=== PATIENT | male | born 1965 | race Caucasian/White ===

== ENCOUNTER 2020-08-24 13:11 | Observation (INO) | payer BC ==
[2020-08-24] MEDS ORDERED: NALOXONE 0.4 MG/ML 1 ML VIAL IV PRN (13:17)
[2020-08-24] MEDS ORDERED: ACETAMINOPHEN TAB 325 MG TAB PO PRN (13:17)
[2020-08-24] MEDS ORDERED: NITROGLYCERIN SL TABS 0.4 MG TAB SUBLINGUAL PRN (13:19)
--- NOTE | 2020-08-24 13:22 | ED ---
General Adult HPI - General Chief complaint: Chest Pain Stated complaint: Chest pain Time Seen by Provider: 08/24/20 13:14 Source: patient, EMS, RN notes reviewed, old records reviewed Mode of arrival: EMS Limitations: no limitations - History of Present Illness Initial comments: 54-year-old male presenting for evaluation chest pain. Patient was seen at outside hospital and transferred for cardiology consultation and chest pain rule out. He had chest pain this morning which was substernal. He had EKG, laboratory testing at outside hospital which was essentially unremarkable and the patient was transferred for further evaluation and treatment. He is a nonsmoker, no history diabetes or hypertension. No known history of coronary artery disease. He vomited all anterior chest pain this morning which was nonradiating. No associated vomiting or diaphoresis. Patient did have some nausea. - Related Data Allergies Allergy/AdvReac Type Severity Reaction Status Date / Time ibuprofen [From Motrin] Allergy Anaphylaxis Verified 08/24/20 13:17 Review of Systems ROS Statement: Those systems with pertinent positive or pertinent negative responses have been documented in the HPI. ROS Other: All systems not noted in ROS Statement are negative. Past Medical History Past Medical History: GERD/Reflux History of Any Multi-Drug Resistant Organisms: None Reported Additional Past Surgical History / Comment(s): left elbow sx, left hernioa repair, sinus sx Past Psychological History: Anxiety Smoking Status: Former smoker Past Alcohol Use History: Daily Past Drug Use History: None Reported General Exam Limitations: no limitations General appearance: alert, in no apparent distress Head exam: Present: atraumatic, normocephalic Eye exam: Present: normal appearance, PERRL ENT exam: Present: normal exam Neck exam: Present: normal inspection. Absent: tenderness, meningismus Respiratory exam: Present: normal lung sounds bilaterally. Absent: respiratory distress, wheezes Cardiovascular Exam: Present: regular rate, normal rhythm GI/Abdominal exam: Present: soft. Absent: distended, tenderness Extremities exam: Present: normal inspection, normal capillary refill. Absent: pedal edema, calf tenderness Neurological exam: Present: alert, oriented X3, CN II-XII intact. Absent: motor sensory deficit Psychiatric exam: Present: normal affect, normal mood Skin exam: Present: warm, dry, intact. Absent: cyanosis, diaphoretic Course Vital Signs 08/24/20 13:12 Pulse Rate 77 Respiratory 16 Rate Blood Pressure 157/100 O2 Sat by Pulse 98 Oximetry - Reevaluation(s) Reevaluation #1: 08/24/20 13:21 Patient had been given aspirin prior to transfer EKG Findings - EKG Comments: EKG Findings:: EKG: Normal sinus rhythm, rate 78, AZ interval 142, QRS duration 80, QTC 444, no ST segment elevation. Medical Decision Making - Medical Decision Making 54-year-old male transferred for chest pain rule out. Laboratory testing will be repeated including second troponin at this time. He had a normal CBC, normal CMP and negative troponin prior to transfer. She will be kept on telemetry, serial cardiac enzymes, cardiology consultation. Disposition Clinical Impression: Chest pain Disposition: ADMITTED IP TO THIS HOSP Condition: Stable Is patient prescribed a controlled substance at d/c from ED?: No Referrals: Nonstaff,Physician [Primary Care Provider] - 1-2 days Decision to Admit Reason: Admit from EC Decision Date: 08/24/20 Decision Time: 13:22
[2020-08-24 13:34] LABS: Basophils % (A) 0 %; Eosinophils # (A) 0.2 k/uL (0-0.7); Eosinophils % (A) 2 %; HCT 43.8 % (39.0-53.0); HGB 14.9 gm/dL (13.0-17.5); Lymphocytes # (A) 1.8 k/uL (1.0-4.8); Lymphocytes % (A) 25 %; MCH 31.6 pg (25.0-35.0); MCHC 33.9 g/dL (31.0-37.0); MCV 93.1 fL (80.0-100.0); Mean Platelet Volume 6.6; Monocytes # (A) 0.3 k/uL (0-1.0); Monocytes % (A) 4 %; Neutrophils # (A) 4.9 k/uL (1.3-7.7); Neutrophils % (A) 66 %; Platelet Count 282 k/uL (150-450); RBC 4.71 m/uL (4.30-5.90); RDW 12.5 % (11.5-15.5); WBC 7.3 k/uL (3.8-10.6)
[2020-08-24 13:43] LABS: ALT 32 U/L (4-49); AST 31 U/L (17-59); African American GFR (CKD) >90 (>60 ml/min/1.73 sqM); Albumin 4.5 g/dL (3.5-5.0); Alkaline Phosphatase 44 U/L (38-126); Anion Gap 11 mmol/L; Blood Urea Nitrogen 17 mg/dL (9-20); Calcium 9.5 mg/dL (8.4-10.2); Carbon Dioxide 21 mmol/L (22-30); Chloride 105 mmol/L (98-107); Glucose 92 mg/dL (74-99); Non-African American GFR(CKD) >90 (>60 ml/min/1.73 sqM); Potassium 4.3 mmol/L (3.5-5.1); Sodium 137 mmol/L (137-145); Total Bilirubin 0.7 mg/dL (0.2-1.3); Total Protein 7.6 g/dL (6.3-8.2)
[2020-08-24 13:46] LABS: INR 0.9 (<1.2); Partial Thromboplastin Time 22.6 sec (22.0-30.0); Prothrombin Time 9.8 sec (9.0-12.0)
[2020-08-24] MEDS: MORPHINE SULFATE 4 MG/ML SYRINGE IV PRN (20:59)
[2020-08-25] MEDS: MORPHINE SULFATE 4 MG/ML SYRINGE IV PRN (01:16)
[2020-08-25] MEDS ORDERED: PANTOPRAZOLE 40 MG TABLET PO SCH (07:30)
--- NOTE | 2020-08-25 07:31 | P.CRDCN ---
History of Present Illness Chief complaint: Chest pain History of present illness: This is a very pleasant 54-year-old gentleman with no significant cardiovascular history who was requested to see as a consult for further evaluation of chest discomfort. He was in his usual state of health until yesterday when he was at home and suddenly developed discomfort in the chest as a sharp discomfort lasted only for a few seconds. After that the chest discomfort has resolved. No associated symptoms of shortness of breath or dizziness or lightheadedness or sweating. No loss of consciousness and no syncope. No feeling of heart racing or fluttering. Currently is chest pain-free. He stated he has been experiencing back discomfort and chest discomfort lately and he is known to have chronic pain. Apparently the back discomfort and chest discomfort are positional and mainly once he is turning his torso to the right or to the left. He presented initially to the emergency department at [facility] subsequently he was transferred to [facility]. The EKG showed sinus rhythm without any significant ST or T wave abnormalities. The blood work came in to be unremarkable. Currently is chest pain-free. He states that he underwent a stress test about a month ago at [place] and that was unre markable. Past Medical History Past Medical History: GERD/Reflux Additional Past Medical History / Comment(s): Pt to have colonoscopy 08/28/20 for possible IBS, muscle spasms, occasional low back pain, sinus problems History of Any Multi-Drug Resistant Organisms: None Reported Additional Past Surgical History / Comment(s): left elbow sx to remove piece of metal, left inguinal hernia repair, sinus surgery. Past Anesthesia/Blood Transfusion Reactions: No Reported Reaction, Motion Sickness Additional Past Anesthesia/Blood Transfusion Reaction / Comment(s): Pt has clausterphobia. Smoking Status: Former smoker - Past Family History Father Family Medical History: Myocardial Infarction (HI) Additional Family Medical History / Comment(s): Father of a HI at the age of 68yrs. Mother History Unknown: Yes Additional Family Medical History / Comment(s): Pt cannot recall mother's medical history at this time. Medications and Allergies Home Medications Medication Instructions Recorded Confirmed Type L.acidoph,Paracasei, B.lactis 1 cap PO DAILY 08/24/20 08/24/20 History [Probiotic] Loratadine [Claritin] 10 mg PO DAILY 08/24/20 08/24/20 History Omeprazole Magnesium [PriLOSEC OTC] 20 mg PO DAILY 08/24/20 08/24/20 History Vitamin E 4,000 unit PO DAILY 08/24/20 08/24/20 History buPROPion HCL [Wellbutrin XL] 300 mg PO DAILY 08/24/20 08/24/20 History Allergies Allergy/AdvReac Type Severity Reaction Status Date / Time ibuprofen [From Motrin] Allergy Anaphylaxis Verified 08/24/20 13:46 Physical Exam Vitals: Vital Signs Temp Pulse Pulse Resp BP BP Pulse Ox 08/25/20 01:53 70 08/25/20 01:27 98.2 F 70 114/76 96 08/24/20 20:00 69 08/24/20 19:45 97.9 F 69 137/83 97 08/24/20 15:40 97.7 F 71 16 136/85 95 08/24/20 13:12 77 16 157/100 98 Intake and Output 08/24/20 08/25/20 08/25/20 22:59 06:59 14:59 Intake Total 200 0 Balance 200 0 Intake: Oral 200 0 Other: Voiding Method Toilet Toilet # Voids 2 Weight 88.451 kg - Constitutional General appearance: no acute distress - Respiratory Respiratory: bilateral: CTA - Cardiovascular Rhythm: regular Heart sounds: normal: S1, S2 Results 08/24/20 13:21 08/24/20 13:21 Cardiac Enzymes 08/24/20 08/24/20 08/24/20 Range/Units 13:21 13:21 16:02 AST 31 (17-59) U/L Troponin I <0.012 <0.012 (0.000-0.034) ng/mL 08/24/20 Range/Units 19:17 AST (17-59) U/L Troponin I <0.012 (0.000-0.034) ng/mL Coagulation 08/24/20 Range/Units 13:21 PT 9.8 (9.0-12.0) sec APTT 22.6 (22.0-30.0) sec CBC 08/24/20 Range/Units 13:21 WBC 7.3 (3.8-10.6) k/uL RBC 4.71 (4.30-5.90) m/uL Hgb 14.9 (13.0-17.5) gm/dL Hct 43.8 (39.0-53.0) % Plt Count 282 (150-450) k/uL Comprehensive Metabolic Panel 08/24/20 Range/Units 13:21 Sodium 137 (137-145) mmol/L Potassium 4.3 (3.5-5.1) mmol/L Chloride 105 (98-107) mmol/L Carbon Dioxide 21 L (22-30) mmol/L BUN 17 (9-20) mg/dL Creatinine 0.75 (0.66-1.25) mg/dL Glucose 92 (74-99) mg/dL Calcium 9.5 (8.4-10.2) mg/dL AST 31 (17-59) U/L ALT 32 (4-49) U/L Alkaline Phosphatase 44 (38-126) U/L Total Protein 7.6 (6.3-8.2) g/dL Albumin 4.5 (3.5-5.0) g/dL Current Medications Generic Name Dose Route Start Last Admin Trade Name Freq PRN Reason Stop Dose Admin Acetaminophen 650 mg 08/24/20 13:17 Acetaminophen Tab 325 Mg Tab PO Q6HR PRN Mild Pain or Fever > 100.5 Bupropion HCl 300 mg 08/25/20 09:00 Bupropion Xl 300 Mg Tab.Er.24h PO DAILY [facility] Loratadine 10 mg 08/25/20 09:00 Loratadine 10 Mg Tab PO DAILY [facility] Morphine Sulfate 4 mg 08/24/20 13:17 08/25/20 01:16 Morphine Sulfate 4 Mg/Ml Syringe IV 4 mg Q4HR PRN Administration Severe Pain Naloxone HCl 0.2 mg 08/24/20 13:17 Naloxone 0.4 Mg/Ml 1 Ml Vial IV Q2M PRN Opioid Reversal Nitroglycerin 0.4 mg 08/24/20 13:19 Nitroglycerin Sl Tabs 0.4 Mg Tab SUBLINGUAL Q5M PRN Chest Pain Pantoprazole Sodium 40 mg 08/25/20 07:30 Pantoprazole 40 Mg Tablet PO DAILY@0730 [facility] Vitamin E 1,600 unit 08/25/20 09:00 Vitamin E (Dl,Tocopheryl Acet) 400 Unit Cap PO DAILY [facility] Intake and Output 08/24/20 08/25/20 08/25/20 22:59 06:59 14:59 Intake Total 200 0 Balance 200 0 Intake: Oral 200 0 Other: Voiding Method Toilet Toilet # Voids 2 Weight 88.451 kg 08/24/20 13:21 08/24/20 13:21 Assessment and Plan Assessment: Assessment #1 atypical chest discomfort Plan #1 acute coronary event was ruled out #2 rule out PE. I will get a d-dimer #3 obtain an echocardiogram was Doppler #4 if the workup is unremarkable the patient need to have a stress test probably as an outpatient #5 he would like to go home and have the stress test done as an outpatient
[2020-08-25 08:13] VITALS: BP 107/67; PULSE 65; RESP 18; TEMP 97.7
[2020-08-25] MEDS ORDERED: LORATADINE 10 MG TAB PO SCH (09:00)
[2020-08-25] MEDS ORDERED: buPROPion XL 300 MG TAB.ER.24H PO SCH (09:00)
[2020-08-25] MEDS ORDERED: VITAMIN E (DL,TOCOPHERYL ACET) 400 UNIT CAP PO SCH (09:00)
--- NOTE | 2020-08-25 10:27 | P.HPIM ---
History of Present Illness H&P Date: 08/25/20 Chief Complaint: Apical chest pain, nausea and GERD, elevated blood pressure 54-year-old male one of Dr. 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 Patient ended up going to [facility] his EKG and CK were negative patient was transferred to [facility] under her service for cardiology consultation and possible need for stress test. Patient was seen and evaluated in the ER CK with troponin continue to be negative EKG didn't show any abnormality patient was hospitalized consult cardiology and plan for stress test if possible otherwise echocardiogram will be done. Patient had no further chest pain or angina initially was on heparin and nitro which were both stopped. Review of Systems CONSTITUTIONAL: Well-developed no acute respiratory distress. EYES: No icterus sclerae, no conjunctivitis. EARS, NOSE, MOUTH, THROAT, and FACE: No sore throat, lymphadenopathy, carotid bruits or deformity. RESPIRATORY: No SOB cough or wheezes. CARDIOVASCULAR: Positive chest wall pain, Palpitation, PND, Orthopnea, or angina. GASTROINTESTINAL: No Abd pain, Nausea or vomiting, no Diarrhea or constipation, No GI Bleed, no distention or masses. Increase heartburn and GERD GENITOURINARY: Negative for Hematuria or UTI, no kidney stones. INTEGUMENT/BREAST: Negative for any muscular injury with mild osteoarthritis.. HEMATOLOGIC/LYMPHATIC: Negative for bleed or purpura. MUSCULOSKELTAL: Negative for Myalgia or arthralgia. NEURLOGICAL: No LOC, Sz or syncope, blurred vision dizziness or abnormality.. BEHAVIORAL/PSYCH: Negative. ENDOCRINE: Negative. Social history: Patient quit smoking 2009 use smoke half pack a day for 9 years than 2 tobacco f or long time adequate systemic 2009 with the help of Chantix. Patient drink 4 days a week between 2-5 beers at the time has not been an alcoholic and did not have any withdrawal symptoms, does not use any recreational marijuana or drugs. Patient worked in service appliance maintenance. Family history: His father dying at 68 from [place], mother is living or 72 with history of hypertension. Patient has 4 sisters are all living and well for children with no major medical problem. Past Medical History Past Medical History: GERD/Reflux Additional Past Medical History / Comment(s): Pt to have colonoscopy 08/28/20 for possible IBS, muscle spasms, occasional low back pain, sinus problems History of Any Multi-Drug Resistant Organisms: None Reported Additional Past Surgical History / Comment(s): left elbow sx to remove piece of metal, left inguinal hernia repair, sinus surgery. Past Anesthesia/Blood Transfusion Reactions: No Reported Reaction, Motion Sickne ss Additional Past Anesthesia/Blood Transfusion Reaction / Comment(s): Pt has clausterphobia. Smoking Status: Former smoker - Past Family History Father Family Medical History: Myocardial Infarction (MT) Additional Family Medical History / Comment(s): Father of a MT at the age of 68yrs. Mother History Unknown: Yes Additional Family Medical History / Comment(s): Pt cannot recall mother's medical history at this time. Medications and Allergies Home Medications Medication Instructions Recorded Confirmed Type L.acidoph,Paracasei, B.lactis 1 cap PO DAILY 08/24/20 08/24/20 History [Probiotic] Loratadine [Claritin] 10 mg PO DAILY 08/24/20 08/24/20 History Omeprazole Magnesium [PriLOSEC OTC] 20 mg PO DAILY 08/24/20 08/24/20 History Vitamin E 4,000 unit PO DAILY 08/24/20 08/24/20 History buPROPion HCL [Wellbutrin XL] 300 mg PO DAILY 08/24/20 08/24/20 History Acetaminophen Tab [Tylenol] 650 mg PO Q6HR PRN tab 08/25/20 Rx Allergies Allergy/AdvReac Type Severity Reaction Status Date / Time ibuprofen [From Motrin] Allergy Anaphylaxis Verified 08/24/20 13:46 Physical Exam Vitals: Vital Signs Temp Pulse Pulse Resp BP BP Pulse Ox 08/25/20 01:53 70 08/25/20 01:27 98.2 F 70 114/76 96 08/24/20 20:00 69 08/24/20 19:45 97.9 F 69 137/83 97 08/24/20 15:40 97.7 F 71 16 136/85 95 08/24/20 13:12 77 16 157/100 98 Intake and Output 08/24/20 08/24/20 08/25/20 14:59 22:59 06:59 Intake Total 200 0 Balance 200 0 Intake: Oral 200 0 Other: Voiding Method Toilet Toilet # Voids 2 Weight 88.451 kg 88.451 kg General Appearance: Alert, cooperative, no distress, appears stated age. Neck HEENT: Supple, no lymphadenopathy, no thyroid enlargement, no carotid bruits. Lungs: Clear to auscultation without crackles or wheezes no rhonchi, no deformity. Chest Wall: Chest wall normal expansion with deep inspiration no tenderness and no deformity was found on exam, slight discomfort in the chest wall area as a mild costochondritis worse in the right than the left side.. Heart: Regular rate and rhythm, S1, S2 normal, no murmur, rub or gallop. Back: Symmetric, no curvature, ROM normal, no CVA tenderness. Abdomen: Soft, non-tender, bowel sounds active all four quadrants, no masses, no organomegaly. Extremities: Extremities normal, atraumatic, no cyanosis or edema. Pulses: 2+ and symmetric. Skin: Skin color, texture, tugor normal, no rashes or lesions. Neurologic: Alert oriented x3 cranial nerves II through XII intact, no motor deficit, no abnormal balance or gait. Results CBC & Chem 7: 08/24/20 13:21 08/24/20 13:21 Labs: Abnormal Lab Results - Last 24 Hours (Table) 08/24/20 Range/Units 13:21 Carbon Dioxide 21 L (22-30) mmol/L Thrombosis Risk Factor Assmnt - DVT/VTE Prophylaxis DVT/VTE Prophylaxis: Mechanical Prophylaxis ordered - Choose All That Apply Any of the Below Risk Factors Present?: Yes Each Factor Represents 1 point: Age 41-60 years, Obesity (BMI >25) Other Risk Factors: No Other congenital or acquired thrombophilia - If yes, enter type in comment: No Thrombosis Risk Factor Assessment Total Risk Factor Score: 2 Thrombosis Risk Factor Assessment Level: Low Risk Assessment and Plan Assessment: 1 atypical chest pain: Less likely to be cardiac in origin, patient was transferred from [facility] continue CK with troponin 3, echocardiogram was ordered and patient will require stress test as an outpatient. If all CK are negative no abnormality with the echo and he is d- dimer patient can be discharged and have stress test as an outpatient patient can be treated for costochondritis by doing Tylenol or Advil for the next week to 10 days adequate follow-up with his primary care and cardiology as an outpatient. 2 severe GERD: Patient has been on omeprazole 20 mg a day continue medication on regular basis at least for the next 2 weeks and then on demand afterward. 3 IBS: Patient still doing probiotic and diet control has been doing well with it so far. 4 chronic depression: Patient has been on Wellbutrin 300 mg daily well controlled so far. 5 GI prophylaxis: Continue PPI. 6 DVT prophylaxis: Continue patient on early mobilization and knee-high DANIKA hose. CODE STATUS: Full code. Admit patient to observation status for overnight stay.
--- NOTE | 2020-08-25 10:30 | P.DS ---
Providers Date of admission: 08/24/20 13:57 Attending physician: Rima Mojica MD Consults: 08/24/20 13:18 Consult Physician Routine Consulting Provider: Arnulfo Brewer Consult Reason/Comments: CP Do you want consulting provider notified?: Yes Primary care physician: Darryl Shook MD Hospital Course: Chief Complaint: Apical chest pain, nausea and GERD, elevated blood pressure 54-year-old male one of Dr. 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 Patient ended up going to [facility] his EKG and CK were negative patient was transferred to [facility] under her service for cardiology consultation and possible need for stress test. Patient was seen and evaluated in the ER CK with troponin continue to be negative EKG didn't show any abnormality patient was hospitalized consult cardiology and plan for stress test if possible otherwise echocardiogram will be done. Patient had no further chest pain or angina initially was on heparin and nitro which were both stopped. Review of Systems CONSTITUTIONAL: Well-developed no acute respiratory distress. EYES: No icterus sclerae, no conjunctivitis. EARS, NOSE, MOUTH, THROAT, and FACE: No sore throat, lymphadenopathy, carotid bruits or deformity. RESPIRATORY: No SOB cough or wheezes. CARDIOVASCULAR: Positive chest wall pain, Palpitation, PND, Orthopnea, or angina. GASTROINTESTINAL: No Abd pain, Nausea or vomiting, no Diarrhea or constipation, No GI Bleed, no distention or masses. Increase heartburn and GERD GENITOURINARY: Negative for Hematuria or UTI, no kidney stones. INTEGUMENT/BREAST: Negative for any muscular injury with mild osteoarthritis.. HEMATOLOGIC/LYMPHATIC: Negative for bleed or purpura. MUSCULOSKELTAL: Negative for Myalgia or arthralgia. NEURLOGICAL: No LOC, Sz or syncope, blurred vision dizziness or abnormality.. BEHAVIORAL/PSYCH: Negative. ENDOCRINE: Negative. Social history: Patient quit smoking 2009 use smoke half pack a day for 9 years than 2 tobacco for long time adequate systemic 2009 with the help of Chantix. Patient drink 4 days a week between 2-5 beers at the time has not been an alcoholic and did not have any withdrawal symptoms, does not use any recreational marijuana or drugs. Patient worked in service appliance maintenance. Family history: His father dying at 68 from [place], mother is living or 72 with history of hypertension. Patient has 4 sisters are all living and well for children with no major medical problem. Physical Exam Vitals: Vital Signs Temp Pulse Pulse Resp BP BP Pulse Ox 08/25/20 01:53 70 08/25/20 01:27 98.2 F 70 114/76 96 08/24/20 20:00 69 08/24/20 19:45 97.9 F 69 137/83 97 08/24/20 15:40 97.7 F 71 16 136/85 95 08/24/20 13:12 77 16 157/100 98 Intake and Output 08/24/20 08/24/20 08/25/20 14:59 22:59 06:59 Intake Total 200 0 Balance 200 0 Intake: Oral 200 0 Other: Voiding Method Toilet Toilet # Voids 2 Weight 88.451 kg 88.451 kg General Appearance: Alert, cooperative, no distress, appears stated age. Neck HEENT: Supple, no lymphadenopathy, no thyroid enlargement, no carotid bruits. Lungs: Clear to auscultation without crackles or wheezes no rhonchi, no deformity. Chest Wall: Chest wall normal expansion with deep inspiration no tenderness and no deformity was found on exam, slight discomfort in the chest wall area as a mild costochondritis worse in the right than the left side.. Heart: Regular rate and rhythm, S1, S2 normal, no murmur, rub or gallop. Back: Symmetric, no curvature, ROM normal, no CVA tenderness. Abdomen: Soft, non-tender, bowel sounds active all four quadrants, no masses, no organomegaly. Extremities: Extremities normal, atraumatic, no cyanosis or edema. Pulses: 2+ and symmetric. Skin: Skin color, texture, tugor normal, no rashes or lesions. Neurologic: Alert oriented x3 cranial nerves II through XII intact, no motor deficit, no abnormal balance or gait. Results CBC & Chem 7: 08/24/20 13:21 08/24/20 13:21 Labs: Abnormal Lab Results - Last 24 Hours (Table) 08/24/20 Range/Units 13:21 Carbon Dioxide 21 L (22-30) mmol/L Assessment and Plan Assessment: 1 atypical chest pain: Less likely to be cardiac in origin, patient was [facility] sferred from [facility] continue CK with troponin 3, echocardiogram was ordered and patient will require stress test as an outpatient. If all CK are negative no abnormality with the echo and he is d-dimer patient can be discharged and have stress test as an outpatient patient can be treated for costochondritis by doing Tylenol or Advil for the next week to 10 days adequate follow-up with his primary care and cardiology as an outpatient. 2 severe GERD: Patient has been on omeprazole 20 mg a day continue medication on regular basis at least for the next 2 weeks and then on demand afterward. 3 IBS: Patient still doing probiotic and diet control has been doing well with it so far. 4 chronic depression: Patient has been on Wellbutrin 300 mg daily well controlled so far. 5 GI prophylaxis: Continue PPI. 6 DVT prophylaxis: Continue patient on early mobilization and knee-high DANIKA hose. Hospital course: Patient was hospitalized overnight was seen cardiology consultation CK with troponin 3 came back negative echocardiogram was pending but no major abnormality pulmonary was found, patient had d-dimer was negative no need for any CTA or any testing for coagulopathy this point. Patient is feeling well with no further chest pain. Patient most likely had mild episode of costochondritis: To be treated with ibuprofen or Tylenol follow-up with his primary care and cardiology in the next few days and follow-up with stress test as an outpatient patient hopefully will be cleared medically as soon as his echo result is complete can Be discharged home today. Patient Condition at Discharge: Stable Plan - Discharge Summary Discharge Rx Participant: No New Discharge Prescriptions: New Acetaminophen Tab [Tylenol] 650 mg PO Q6HR PRN tab PRN Reason: Mild Pain Or Fever > 100.5 Continue buPROPion HCL [Wellbutrin XL] 300 mg PO DAILY Vitamin E 4,000 unit PO DAILY Omeprazole Magnesium [PriLOSEC OTC] 20 mg PO DAILY Loratadine [Claritin] 10 mg PO DAILY L.acidoph,Paracasei, B.lactis [Probiotic] 1 cap PO DAILY Discharge Medication List L.acidoph,Paracasei, B.lactis [Probiotic] 1 cap PO DAILY 08/24/20 [History] Loratadine [Claritin] 10 mg PO DAILY 08/24/20 [History] Omeprazole Magnesium [PriLOSEC OTC] 20 mg PO DAILY 08/24/20 [History] Vitamin E 4,000 unit PO DAILY 08/24/20 [History] buPROPion HCL [Wellbutrin XL] 300 mg PO DAILY 08/24/20 [History] Acetaminophen Tab [Tylenol] 650 mg PO Q6HR PRN tab 08/25/20 [Rx] Follow up Appointment(s)/Referral(s): Arnulfo Brewer MD [STAFF PHYSICIAN] - 1 Week ([facility] will call patient to schedule time for .) Nonstaff,Physician [REFERRING] - 1-2 days Patient Instructions/Handouts: Chest Pain (DC) Discharge Disposition: HOME SELF-CARE
--- NOTE | 2020-08-26 10:00 | ECHOF ---
Referral Reason: MEASUREMENTS -------- HEIGHT: 175.3 cm WEIGHT: 88.5 kg BP: IVSd: 1.1 cm (0.6 - 1.1) LVIDd: 4.2 cm (3.9 - 5.3) LVPWd: 1.4 cm (0.6 - 1.1) IVSs: 1.5 cm LVIDs: 3.0 cm LVPWs: 1.4 cm LAESV Index (A-L): 19.35 ml/m Ao Diam: 3.0 cm (2.0 - 3.7) AV Cusp: 1.9 cm (1.5 - 2.6) MV EXCURSION: 22.777 mm (> 18.000) MV EF SLOPE: 102 mm/s (70 - 150) EPSS: 0.5 cm MV E Gaudencio: 0.76 m/s MV DecT: 195 ms MV A Gaudencio: 0.80 m/s MV E/A Ratio: 0.95 RAP: 5.00 mmHg RVSP: 24.69 mmHg FINDINGS -------- Sinus rhythm. This was a technically good study. LV size, wall thickness and systolic function are normal, with an EF greater than 55%. The left bernard tricular size is normal. The right ventricle is normal in size. Normal LA size by volume 22+/-6 ml/m2. The right atrial size is normal. There is mild aortic valve sclerosis. Mild mitral regurgitation is present. Mild tricuspid regurgitation present. Right ventricular systolic pressure is normal at < 35 mmHg. There is no pulmonic regurgitation present. The aortic root size is normal. There is no pericardial effusion. CONCLUSIONS -------- 1. LV size, wall thickness and systolic function are normal, with an EF greater than 55%. 2. The left ventricular size is normal. 3. The right ventricle is normal in size. 4. Normal LA size by volume 22+/-6 ml/m2. 5. The right atrial size is normal. 6. There is mild aortic valve sclerosis. 7. Mild mitral regurgitation is present. 8. Mild tricuspid regurgitation present. 9. The aortic root size is normal. 10. There is no pericardial effusion. DATA ENGINEER: Yuridia Santos RDCS
== END 2020-08-25 12:09 | disposition home or self-care (01) ==
LOC: EC 13:11 → 6NMEDSUR 13:57
PROVIDERS: ADMIT Internal Medicine; ATTEND Internal Medicine
DX: R07.89 Other chest pain (principal); K21.9 Gastro-esophageal reflux disease without esophagitis; M94.0 Chondrocostal junction syndrome [Tietze]; F41.9 Anxiety disorder, unspecified; K58.9 Irritable bowel syndrome, unspecified; R03.0 Elevated blood-pressure reading, without diagnosis of hypertension; N40.0 Benign prostatic hyperplasia without lower urinary tract symptoms; M19.90 Unspecified osteoarthritis, unspecified site; R06.02 Shortness of breath; E66.9 Obesity, unspecified; Z68.28 Body mass index [BMI] 28.0-28.9, adult; R11.0 Nausea; F32.9 Major depressive disorder, single episode, unspecified; G89.29 Other chronic pain; M54.5 Low back pain; F40.240 Claustrophobia; Z20.828 Contact with and (suspected) exposure to other viral communicable diseases; Z79.899 Other long term (current) drug therapy; Z88.6 Allergy status to analgesic agent; Z87.891 Personal history of nicotine dependence; Z82.49 Family history of ischemic heart disease and other diseases of the circulatory system
CPT/HCPCS: 96376; 96374; 93005 ×2; 99285; 36415; 93306; 85379; 80053; 83735; 84484; 85025; 85610; 85730; 87635; G0378 ×2; J2270 ×2